=== PATIENT | male | born 1935 | race Caucasian/White ===

== ENCOUNTER 2024-04-28 01:17 | Inpatient (IN) | payer MEDICARE ==
[~2024-04-28] VITALS: Ht 175.3 cm; Wt 127.2 kg
[2024-04-28] VITALS (11 sets, daily range): BP systolic 0–161; BP diastolic 0–75; PULSE 65–98; RESP 18; TEMP 99; O2SAT 52–97
[2024-04-28] MEDS: ROCURONIUM 10MG/ML 10ML VIAL IV ONE ×2 (01:39→01:50)
[2024-04-28] MEDS: ETOMIDATE (2MG/ML) 20ML VIAL IV ONE ×2 (01:39→01:50)
[2024-04-28] MEDS ORDERED: MIDAZOLAM DRIP 50 mg/50mL 50 ML IV SCH (01:45)
[2024-04-28 01:50] LABS: Basophils # (auto) 0 10 ^3/uL (0-0.2); Basophils % (auto) 0.3 % (0.0-2.0); Eosinophils # (auto) 0 10 ^3/uL (0-0.8); Eosinophils % (auto) 0.2 % (0.0-7.0)
[2024-04-28 01:51] LABS: Hematocrit 42.3 % (41.0-53.0); Hemoglobin 13.8 g/dL (13.5-17.5); Lymphocytes # (auto) 1.4 10 ^3/uL (0.4-5.4); Lymphocytes % (auto) 10.7 % (10.0-50.0); Mean Corpuscular Hemoglobin 34.6 pg (28.0-32.0); Mean Corpuscular Hgb Conc. 32.7 g/dL (32.0-36.0); Mean Corpuscular Volume 106.1 fL (80.0-100.0); Monocytes # (auto) 0.6 10 ^3/uL (0-1.3); Monocytes % (auto) 4.3 % (0.0-12.0); Neutrophils # (auto) 11.2 10 ^3/uL (1.6-8.6); Neutrophils % (auto) 84.5 % (37.0-80.0); Nucleated Red Blood Cells % 0.5 %; Platelet Count (auto) 393 10^3/uL (140-450); Red Blood Cells 3.99 10^6/uL (4.5-5.90); Red Cell Distribution Width 18.3 % (11.8-14.3); White Blood Cell 13.3 10^3/uL (4.4-10.8)
[2024-04-28] MEDS: MIDAZOLAM DRIP 50 mg/50mL 50 ML IV ONE (01:51)
[2024-04-28] MEDS: MIDAZOLAM DRIP 50 mg/50mL 50 ML IV SCH (02:00)
[2024-04-28] MEDS: NOREPINEPHRINE 8 MG/250ML KIT 250 ML IV SCH ×3 (02:10→09:59)
[2024-04-28 02:12] LABS: Alanine Aminotransferase 35 U/L (7-40); Albumin 3.4 g/dL (3.2-4.8); Alkaline Phosphatase 256 U/L (46-116); Anion Gap 16 (5-15); Aspartate Aminotransferase 76 U/L (13-40); BUN/Creatinine Ratio 7.3 (10.0-20.0); Blood Urea Nitrogen 39 mg/dL (9-23); Carbon Dioxide 19 mmol/L (20-31); Chloride 95 mmol/L (98-107); Glucose 384 mg/dL (74-106); Potassium 4.5 mmol/L (3.5-5.1); Sodium 130 mmol/L (136-145)
[2024-04-28 02:13] LABS: Bilirubin, Total 0.7 mg/dL (0.2-1.0); Total Protein 5.8 g/dL (5.7-8.2)
[2024-04-28] MEDS: NOREPINEPHRINE 8 MG/250ML KIT 250 ML IV ONE (02:21)
[2024-04-28] MEDS: fentaNYL Drip 2500mCg/250mlNS 250 ML IV SCH (02:24)
[2024-04-28] MEDS ORDERED: VASOPRESSIN 20 UNITS in SODIUM CHL 0.9% 99 ML IV SCH (02:30)
[2024-04-28 02:38] LABS: Urine Bacteria None Seen /hpf (None Seen)
[2024-04-28 02:42] LABS: Base Excess -14.3 mmol/L (-2.0-3.0)
[2024-04-28 02:46] LABS: Urine Blood Negative /uL (Negative); Urine Clarity Clear (Clear); Urine Color Dark-Yellow (Yellow); Urine Hyaline Cast FEW /lpf (0 - 2); Urine Protein, UAD Negative (Negative); Urine Specific Gravity 1.018 (1.001-1.035); Urine Urobilinogen Normal (Negative); Urine WBC 2 /hpf (0 - 3)
[2024-04-28] MEDS: VASOPRESSIN 20 UNITS in SODIUM CHL 0.9% 99 ML IV SCH ×2 (03:15→09:45)
[2024-04-28 03:29] LABS: Phosphorus 6.1 mg/dL (2.4-5.1)
[2024-04-28] MEDS: VASOPRESSIN 20 UNIT/ML ONE (03:32)
[2024-04-28 04:35] LABS: Magnesium 2.5 mg/dL (1.6-2.6)
[2024-04-28] MEDS: VANCOMYCIN 1GM/200ML 200 ML IV ONE (04:45)
[2024-04-28] MEDS: CEFEPIME 2GM/50ML NS 50 ML IV ONE (04:45)
[2024-04-28] MEDS: PHENYLEPHRINE IV 250 ML IV SCH ×2 (05:20→09:45)
[2024-04-28] MEDS: PHENYLEPHRINE IV 250 ML IV ONE (05:37)
[2024-04-28] MEDS: ACETAMINOPHEN IV 1000 MG/100ML (10MG/ML) IV STA (07:18)
[2024-04-28 08:29] LABS: Base Excess -15.5 mmol/L (-2.0-3.0)
[2024-04-28] MEDS ORDERED: DEXTROSE (50%) 50ML SYRG IV PRN (09:00)
[2024-04-28] MEDS ORDERED: MORPHINE SULFATE INJ 2 MG/ml SYRG IV PRN (09:00)
[2024-04-28] MEDS ORDERED: VANCOMYCIN PER PHARMACY 0 MG IV SCH ×2 (09:00→09:15)
[2024-04-28] MEDS ORDERED: NITROGLYCERIN 0.4 MG SL TAB SL PRN (09:00)
[2024-04-28] MEDS: EPINEPHrine HCL 250 ML IV SCH ×2 (09:45→10:11)
[2024-04-28] MEDS: SODIUM BICARB 8.4% 50Meq/50ml SYR Vial IV ONE (09:45)
[2024-04-28] MEDS: PANTOPRAZOLE 40 MG/10 ML VIAL INJ IV ONE (09:45)
[2024-04-28] MEDS ORDERED: CEFEPIME 1GM/ 50ML 50 ML IV SCH (10:00)
[2024-04-28] MEDS ORDERED: HEPARIN SODIUM (PORCINE) 5000 UNITS/ML 1ML VIAL SC SCH (10:00)
[2024-04-28] MEDS: HEPARIN SODIUM (PORCINE) 5000 UNITS/ML 1ML VIAL SC SCH (10:00)
[2024-04-28 10:11] LABS: Lactic Acid w/Reflex 10.6 mmol/L (0.4-2.0)
[2024-04-28 11:03] LABS: Hematocrit 42.9 % (41.0-53.0); Hemoglobin 13.1 g/dL (13.5-17.5); Mean Corpuscular Hemoglobin 33.7 pg (28.0-32.0); Mean Corpuscular Hgb Conc. 30.6 g/dL (32.0-36.0); Mean Corpuscular Volume 109.9 fL (80.0-100.0); Platelet Count (auto) 322 10^3/uL (140-450); Red Cell Distribution Width 18.5 % (11.8-14.3); White Blood Cell 17.3 10^3/uL (4.4-10.8)
[2024-04-28 11:05] LABS: Anion Gap 18 (5-15); Carbon Dioxide 12 mmol/L (20-31); Chloride 100 mmol/L (98-107); Potassium 4.2 mmol/L (3.5-5.1); Sodium 130 mmol/L (136-145)
[2024-04-28 11:06] LABS: Calcium 8.7 mg/dL (8.7-10.4)
[2024-04-28 11:11] LABS: BUN/Creatinine Ratio 6.4 (10.0-20.0); Blood Urea Nitrogen 32 mg/dL (9-23); Glucose 311 mg/dL (74-106); Triglycerides 171 mg/dL (< 150)
[2024-04-28 11:12] LABS: Basophils % (manual) 0 (0.0-2.0); Blast Cells 0; Eosinophils % (manual) 0 (0-7); LDL Cholesterol 26 mg/dL (< 100); Myelocytes % 0; Promyelocytes % 0; Reactive Lymphocytes 0
[2024-04-28 11:13] LABS: Cholesterol 67 mg/dL (< 200); HDL Cholesterol 18 mg/dL (40-59)
[2024-04-28 11:24] LABS: Anisocytosis Slight; Band Neutrophils % (manual) 30; Lymphocytes % (manual) 10 (10.0-50.0); Metamyelocytes % 2; Monocytes % (manual) 5 (0-12)
[2024-04-28 11:25] LABS: Hypochromia Moderate; Macrocytosis Moderate; Platelet Estimate Adequate; Polychromasia Moderate
[2024-04-28] MEDS: InsuLIN REG 1unit/0.01ml Soln (100units/ml) SC SCH (12:00)
[2024-04-28] MEDS: ACCU-CHEK COMFORT CURVE STRIP VI SCH (12:00)
[2024-04-28 13:14] LABS: Base Excess -18.4 mmol/L (-2.0-3.0)
[2024-04-29] MEDS ORDERED: CEFEPIME 1GM/ 50ML 50 ML IV SCH (10:00)
[2024-04-29] MEDS ORDERED: PANTOPRAZOLE 40 MG/10 ML VIAL INJ IV SCH (10:00)
== END 2024-04-28 14:23 | DRG 208 ==
LOC: ER 01:17 → EDBD 01:17 → TELE 08:48 → ER 08:48 → TELE 13:37
PROVIDERS: ADMIT Nurse Practitioner Family; ATTEND Student in an Organized Health Care Education/Training Program
PROC: 0BH17EZ Insertion of Endotracheal Airway into Trachea, Via Natural or Artificial Opening (ICD-10-PCS; principal; 2024-04-28)
PROC: 5A1935Z Respiratory Ventilation, Less than 24 Consecutive Hours (ICD-10-PCS; 2024-04-28)
PROC: 06HY33Z Insertion of Infusion Device into Lower Vein, Percutaneous Approach (ICD-10-PCS; 2024-04-28)
PROC: 03HY32Z Insertion of Monitoring Device into Upper Artery, Percutaneous Approach (ICD-10-PCS; 2024-04-28)
DX: J96.01 Acute respiratory failure with hypoxia (principal); G93.41 Metabolic encephalopathy; N18.6 End stage renal disease; K76.7 Hepatorenal syndrome; I13.2 Hypertensive heart and chronic kidney disease with heart failure and with stage 5 chronic kidney disease, or end stage renal disease; I50.42 Chronic combined systolic (congestive) and diastolic (congestive) heart failure; Z68.41 Body mass index [BMI] 40.0-44.9, adult; Z66 Do not resuscitate; E11.22 Type 2 diabetes mellitus with diabetic chronic kidney disease; E78.5 Hyperlipidemia, unspecified; S50.812A Abrasion of left forearm, initial encounter; E66.01 Morbid (severe) obesity due to excess calories; D72.829 Elevated white blood cell count, unspecified; Z79.4 Long term (current) use of insulin; Z79.899 Other long term (current) drug therapy; Z99.2 Dependence on renal dialysis; X58.XXXA Exposure to other specified factors, initial encounter; Y93.89 Activity, other specified; Y92.89 Other specified places as the place of occurrence of the external cause; Y99.8 Other external cause status; E11.65 Type 2 diabetes mellitus with hyperglycemia
CPT/HCPCS: 36415; 36600; 71045; 80048; 80053; 80061; 81001; 82805; 83036; 83605; 83735; 83880; 84100; 84443; 84484; 85007; 85025; 85027; 87040; 87070; 87205; 93005; 93306; 94002; 96365; 96375; 99291; G0378; J0131; J0171; J0692; J2470